=== PATIENT | male | born 1975 | race Caucasian/White ===

== ENCOUNTER 2016-05-03 02:53 | Emergency (ER) | payer OTHER ==
[2016-05-03 03:29] LABS: Hematocrit 51 % (42-52); Hemoglobin 17.3 g/dl (14.0-18.0); Mean Corpuscular HGB Conc 34 g/dl (31-36); Mean Corpuscular Hemoglobin 29 pg (27-31); Mean Corpuscular Volume 86 fL (80-94); Mean Platelet Volume 9 um3 (7.4-10.4); Red Blood Count 5.95 10^6/ul (4.0-5.4); Red Cell Distribution Width 13 % (10.5-15); White Blood Count 13.4 10^3/ul (3.5-10.8)
[2016-05-03 03:42] LABS: Albumin 4.2 g/dL (3.2-5.2); Calcium 9.4 mg/dL (8.6-10.3); EGFR African American 118.4 (>60); EGFR Non-African American 92.1 (>60); Globulin 2.2 g/dL (2-4); Potassium 3.7 mmol/L (3.5-5.0); Total Bilirubin 0.6 mg/dL (0.2-1.0); Total Protein 6.4 g/dL (6.4-8.9)
[2016-05-03] MEDS ORDERED: Insulin REGULAR(*) 1 UNITS UNIT IV PUSH ONE (03:56)
[2016-05-03 07:24] VITALS: BP 122/69
--- NOTE | 2016-05-03 08:26 | RAD ---
INDICATION: Chest pain. COMPARISON: Comparison is made with a prior chest 63 study from August 16, 2015. TECHNIQUE: Dual-energy PA and lateral views of the chest were obtained. FINDINGS: The heart is within normal limits in size. Mediastinal and hilar contours appear within normal limits. The lungs are underinflated and clear. No pleural effusion or pneumothorax is seen. IMPRESSION: NO EVIDENCE FOR ACTIVE CARDIOPULMONARY DISEASE.
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
== END 2016-05-03 07:23 | disposition home or self-care (01) ==
LOC: ED 02:53
DX: S20.311A Abrasion of right front wall of thorax, initial encounter (principal); Y04.1XXA Assault by human bite, initial encounter; Y93.9 Activity, unspecified; Y92.9 Unspecified place or not applicable; E11.9 Type 2 diabetes mellitus without complications
CPT/HCPCS: 36415; 71020; 80053; 84484; 85025; 93005; 99283

== ENCOUNTER 2016-12-06 20:56 | Emergency (ER) | payer OTHER ==
[2016-12-06] MEDS ORDERED: NS 0.9% 1000 ML* 1,000 ML IV ONE (22:13)
[2016-12-06 22:41] LABS: Hematocrit 52 % (42-52); Hemoglobin 18.3 g/dl (14.0-18.0); Mean Corpuscular HGB Conc 35 g/dl (31-36); Mean Corpuscular Hemoglobin 30 pg (27-31); Mean Corpuscular Volume 84 fL (80-94); Mean Platelet Volume 8 um3 (7.4-10.4); Red Blood Count 6.19 10^6/ul (4.0-5.4); Red Cell Distribution Width 13 % (10.5-15)
[2016-12-06 22:42] LABS: Comments Flag Yes
[2016-12-06 22:54] LABS: Albumin 4.6 g/dL (3.2-5.2); BUN/Creatinine Ratio 19.8 (8-20); Calcium 10.1 mg/dL (8.6-10.3); EGFR Non-African American 77.8 (>60); Globulin 2.3 g/dL (2-4); Potassium 4.2 mmol/L (3.5-5.0); Total Bilirubin 0.8 mg/dL (0.2-1.0); Total Protein 6.9 g/dL (6.4-8.9)
[2016-12-06 22:55] LABS: Troponin I 0.01 ng/mL (<0.04)
[2016-12-06] MEDS ORDERED: Iodixanol* (CONTRAST) 320 MG/ML 100 ML SDV IV ONE (23:08)
[2016-12-07 00:55] VITALS: BP 129/78
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
== END 2016-12-07 00:52 | disposition home or self-care (01) ==
LOC: ED 20:56
DX: I71.2 Thoracic aortic aneurysm, without rupture (principal); R11.2 Nausea with vomiting, unspecified; F17.210 Nicotine dependence, cigarettes, uncomplicated; R51 Headache; S06.9X1A Unspecified intracranial injury with loss of consciousness of 30 minutes or less, initial encounter; V43.52XA Car driver injured in collision with other type car in traffic accident, initial encounter; Y93.89 Activity, other specified; Y92.89 Other specified places as the place of occurrence of the external cause
CPT/HCPCS: 36415; 70450; 71260; 72125; 74177; 80053; 83690; 84484; 85025; 85610; 93005; 99282; Q9967

== ENCOUNTER 2018-01-23 22:18 | Emergency (ER) | payer MEDICAID, OTHER ==
[2018-01-24] MEDS ORDERED: predniSONE TAB* 20 MG PO ONE (00:57)
--- NOTE | 2018-01-24 01:54 | ED ---
Back Pain - HPI Summary HPI Summary: Patient is a 42-year-old male presents to the ED with pain to the right buttocks extending down the leg and causing numbness and tingling into the lower extremity just BTK. He states he has had this in the past and he was given painkillers. He endorses numbness and tingling to the foot as well, denies any foot drop. He has difficulty with ambulation. Patient appears extremely fatigued on arrival and is shown to have an unsteady gait. He states his been present for approximately 7 days. Denies any bladder or bowel dysfunction. Pain to the posterior spine diffusely throughout. - History of Current Complaint Chief Complaint: EDExtremityLower Stated Complaint: RT LEG NUMBNESS AND PAIN Time Seen by Provider: 01/23/18 23:21 Hx Obtained From: Patient Onset/Duration: Sudden Onset Onset/Duration: Started Hours Ago Timing: Constant Back Pain Location: Is Discrete @ Severity Initially: Moderate Severity Currently: Moderate Pain Intensity: 7 Pain Scale Used: 0-10 Numeric Alleviating Symptom(s): Rest Associated Signs And Symptoms: Positive: Negative. Negative: Bladder Incontinence, Bowel Incontinence - Risk Factors AAA Risk Factors: Negative TAD Risk Factors: Negative Cauda Equina Risk Factors: Negative Epidural Abscess Risk Factors: Negative - Allergies/Home Medications Allergies/Adverse Reactions: Allergies Allergy/AdvReac Type Severity Reaction Status Date / Time ceftriaxone [From Rocephin] Allergy Flushing Verified 01/23/18 22:26 sumatriptan [From Imitrex] Allergy Headache Verified 01/23/18 22:26 zolmitriptan [From Zomig] Allergy Headache Verified 01/23/18 22:26 PMH/Surg Hx/FS Hx/Imm Hx Previously Healthy: Yes Endocrine/Hematology History: Reports: Hx Diabetes - six years ago Denies: Hx Anticoagulant Therapy, Hx Thyroid Disease Cardiovascular History: Reports: Hx Hypertension, Other Cardiovascular Problems/ Disorders - IDDM Denies: Hx Pacemaker/ICD Respiratory History: Reports: Hx Asthma Denies: Hx Chronic Obstructive Pulmonary Disease (COPD) History: Denies: Hx Renal Disease Neurological History: Denies: Hx Dementia, Hx Seizures Psychiatric History: Denies: Hx Substance Abuse - Surgical History Surgery Procedure, Year, and Place: hand surgery. gallbladder. nose repair. kidney stones - Immunization History Date of Tetanus Vaccine: unk Date of Influenza Vaccine: unk Infectious Disease History: No Infectious Disease History: Denies: Hx Clostridium Difficile, Hx Hepatitis, Hx Human Immunodeficiency Virus (HIV), Hx of Known/Suspected MRSA, Hx Shingles, Hx Tuberculosis, Hx Known/ Suspected VRE, Hx Known/Suspected VRSA, History Other Infectious Disease, Traveled Outside the US in Last 30 Days - Family History Known Family History: Positive: Hypertension - Social History Occupation: Employed Full-time Lives: With Family Alcohol Use: None Hx Substance Use: No Substance Use Type: Reports: None Hx Tobacco Use: Yes Smoking Status (MU): Heavy Every Day Tobacco Smoker Amount Used/How Often: 1 ppd Review of Systems Constitutional: Negative Negative: Fever, Chills, Fatigue, Skin Diaphoresis Negative: Palpitations, Chest Pain Negative: Shortness Of Breath, Cough Genitourinary: Negative Positive: no symptoms reported, see HPI Positive: Arthralgia Skin: Negative All Other Systems Reviewed And Are Negative: Yes Physical Exam Triage Information Reviewed: Yes Vital Signs On Initial Exam: Initial Vitals Temp Pulse Resp BP Pulse Ox 97.9 F 93 16 131/81 97 01/23/18 22:21 01/23/18 22:21 01/23/18 22:21 01/23/18 22:21 01/23/18 22:21 Vital Signs Reviewed: Yes Appearance: Positive: Well-Appearing, Well-Nourished Skin: Positive: Skin Color Reflects Adequate Perfusion Head/Face: Positive: Normal Head/Face Inspection Eyes: Positive: EOMI, SIOBHAN, Conjunctiva Clear Neck: Positive: Supple, No Lymphadenopathy Respiratory/Lung Sounds: Positive: Clear to Auscultation, Breath Sounds Present Cardiovascular: Positive: RRR, Pulses are Symmetrical in both Upper and Lower Extremities Musculoskeletal: Positive: Pain @ - right buttocks pain extending to the R lower extremity just BTK with numbness and tingling - no foot drop or B/B dysfunction Diagnostics - Vital Signs Vital Signs Temp Pulse Resp BP Pulse Ox 01/23/18 22:21 97.9 F 93 16 131/81 97 - Laboratory Lab Statement: Any lab studies that have been ordered have been reviewed, and results considered in the medical decision making process. Back Pain Course/Dx - Course Course Of Treatment: During the course treatment, the patient is evaluated for right-sided buttocks pain extending down to the right leg with numbness and tingling. Denies any foot drop. He remains in the toilet, however states he is weak. Denies any bladder or bowel dysfunction. There is no step-off noted. No pain on palpation to the spine throughout. He is given prednisone in the ED. No numbness/tingling to the inner thighs. CT of lumbar and pelvis show no acute changes. He will be discharged home with RX for prednisone x 5 days and follow up with his PCP. - Diagnoses Provider Diagnoses: Sciatica Discharge - Sign-Out/Discharge Documenting (check all that apply): Patient Departure - Discharge Plan Condition: Stable Disposition: HOME Prescriptions: predniSONE TAB* [Deltasone TAB*] 50 mg PO DAILY #5 tab Patient Education Materials: Sciatica (ED), Piriformis Syndrome (ED) Referrals: Lennox Mendoza MD [Primary Care Provider] - Additional Instructions: Ibuprofen and tylenol for pain moist heat to the area prednisone once daily x 5 days Care connections: [phone] Call to make an appt - Billing Disposition and Condition Condition: STABLE Disposition: Home
--- NOTE | 2018-01-24 02:14 | RAD ---
EXAM: CT Lumbar Spine Without Intravenous Contrast CLINICAL HISTORY: 42 years old, male; Pain; Low back pain; Additional info: Severe low back and groin/leg pain TECHNIQUE: Axial computed tomography images of the lumbar spine without intravenous contrast. All CT scans at this facility use at least one of these dose optimization techniques: automated exposure control; mA and/or kV adjustment per patient size (includes targeted exams where dose is matched to clinical indication); or iterative reconstruction. Coronal and sagittal reformatted images were created and reviewed. COMPARISON: No relevant prior studies available. FINDINGS: Vertebrae: 5 lumbar-type vertebral bodies. The height lumbar vertebral bodies are normal. No evidence of a fracture. No pathologic subluxation. Bony density is normal. L5 S1: Decrease in the height of the disc space. A vacuum phenomena is seen within the disc space. Hypertrophic spurring of the posterior endplate. Mild degenerative changes of the facet joints. Broad based central disc protrusion. Mild narrowing of the central canal. Moderate narrowing of the neural foramen on both sides. Since the prior CT study of 12/06/2016, no new findings. Discs/spinal canal/neural foramina: L1-L2: Unremarkable. No significant facet disease. No central canal stenosis. No bony neuroforaminal narrowing. L2-L3: Mild symmetric disc bulge. No significant facet disease. No central canal stenosis. Mild narrowing neural foramen bilaterally. L3-L4: Diffusely bulging disc with a shallow central disc protrusion. Calcification of the of the central portion of the disc protrusion. No significant facet disease. No significant central canal stenosis. Mild narrowing of the neural foramen both sides. L4-L5: Diffusely bulging disc with a shallow central disc protrusion. No significant facet disease. No central canal stenosis. Mild narrowing of the neural foramen both sides L5 S1: Decrease in the height of the disc space. A vacuum phenomena is seen within the disc space. Broad-based central disc protrusion with air in the left subarticular space and subcortical bone. Hypertrophic spurring of the posterior endplate. Mild degenerative changes of the facet joints. Mild narrowing of the central canal. Moderate narrowing of the neural foramen on both sides. Since the prior CT study of 12/06/2016, no new findings. Upper sacrum: Upper sacral canals are patent. Sacral ala are intact. Soft tissues: Paraspinous musculature is normal. IMPRESSION: 1. Degenerative changes of the L5 S1 disc space in which there is a broad-based central disc spur complex with the presence of air located in the left subarticular region. Advanced degenerative changes of the disc space with a vacuum phenomenon. Moderate narrowing of an oral foraminal both sides. These degenerative changes were present on a prior study of 12/06/2016 and are unchanged. 2. Shallow central disc protrusions at L3-4 and L4-L5. No significant spinal stenosis. Mild narrowing neural foramen bilaterally. No significant facet disease. To contact [facility] with a general question: Operations Center - [phone] For direct physician to physician contact: Physician Hotline - [phone] [facility] (ad Facility ID #[id number])
--- NOTE | 2018-01-24 02:19 | RAD ---
EXAM: CT Pelvis Without Intravenous Contrast CLINICAL HISTORY: 42 years old, male; Pain; Hip pain; Bilateral; Additional info: Leg pain and low back pain TECHNIQUE: Axial computed tomography images of the pelvis without intravenous contrast. All CT scans at this facility use at least one of these dose optimization techniques: automated exposure control; mA and/or kV adjustment per patient size (includes targeted exams where dose is matched to clinical indication); or iterative reconstruction. Coronal and sagittal reformatted images were created and reviewed. COMPARISON: C/A/P W CT CHEST/ABD/PEL W 12/06/2016 11:24 PM FINDINGS: Bones/joints: The appearance of the right and left hips are intact. No evidence of a fracture or dislocation. The pubic rami and ischii are intact. The appearance of the sacrum and sacral ala are intact. The iliac bones are intact. Degenerative changes at the level of L5 S1. Decrease in the height of disc space with a vacuum phenomenon. A posterior disc spur complex is seen with mild narrowing of the spinal canal. Mild degenerative changes of the facet joints. She'll posterior disc protrusion L4-L5. Soft tissues: Pelvic musculature are intact as well as the paraspinous musculature. Bladder: Unremarkable. No stones. IMPRESSION: 1. No evidence of a hip fracture. No significant degenerative changes. 2. Spondylotic changes of the lumbar spine. To contact [facility] with a general question: Operations Center - [phone] For direct physician to physician contact: Physician Hotline - [phone] [facility] ([facility] Facility ID #[id number])
[2018-01-24 02:22] VITALS: BP 132/89
== END 2018-01-24 02:22 | disposition home or self-care (01) ==
LOC: ED 22:18
DX: M54.31 Sciatica, right side (principal); M54.5 Low back pain; F17.210 Nicotine dependence, cigarettes, uncomplicated; I10 Essential (primary) hypertension
CPT/HCPCS: 72131; 72192; 99282; J7512

== ENCOUNTER 2018-04-04 22:56 | Emergency (ER) | payer MEDICAID, OTHER ==
[2018-04-04] MEDS ORDERED: oxyCODONE TAB* 5 MG TAB PO ONE (23:37)
[2018-04-04] MEDS ORDERED: Ibuprofen TAB* 600 MG PO ONE (23:37)
--- NOTE | 2018-04-04 23:39 | ED ---
Upper Extremity Pain - HPI Summary HPI Summary: Patient complains of sudden onset left shoulder pain starting 8 AM this morning. Denies trauma, history of same, fever. Denies any other symptoms, pain, injury. - History of Current Complaint Chief Complaint: [place] Stated Complaint: LEFT SHOULDER PAIN Time Seen by Provider: 04/04/18 23:12 Hx Obtained From: Patient Mechanism Of Injury: Unknown Onset/Duration: Started Hours Ago Timing: Constant Severity Initially: Severe Severity Currently: Severe Pain Location: Shoulder Character: Aching, Throbbing Aggravating Factor(s): Movement Alleviating Factor(s): Rest Associated Signs & Symptoms: Positive: Negative - Allergies/Home Medications Allergies/Adverse Reactions: Allergies Allergy/AdvReac Type Severity Reaction Status Date / Time ceftriaxone [From Rocephin] Allergy Flushing Verified 04/04/18 23:02 sumatriptan [From Imitrex] Allergy Headache Verified 04/04/18 23:02 zolmitriptan [From Zomig] Allergy Headache Verified 04/04/18 23:02 PMH/Surg Hx/FS Hx/Imm Hx Endocrine/Hematology History: Reports: Hx Diabetes - six years ago Denies: Hx Anticoagulant Therapy, Hx Thyroid Disease Cardiovascular History: Reports: Hx Hypertension, Other Cardiovascular Problems/ Disorders - IDDM Denies: Hx Pacemaker/ICD Respiratory History: Reports: Hx Asthma Denies: Hx Chronic Obstructive Pulmonary Disease (COPD) History: Denies: Hx Dialysis, Hx Renal Disease EENT History: Denies: Hx Deafness Neurological History: Denies: Hx Dementia, Hx Seizures Psychiatric History: Denies: Hx Substance Abuse - Surgical History Surgery Procedure, Year, and Place: hand surgery. gallbladder. nose repair. kidney stones - Immunization History Date of Tetanus Vaccine: unk Date of Influenza Vaccine: unk Infectious Disease History: No Infectious Disease History: Denies: Hx Clostridium Difficile, Hx Hepatitis, Hx Human Immunodeficiency Virus (HIV), Hx of Known/Suspected MRSA, Hx Shingles, Hx Tuberculosis, Hx Known/ Suspected VRE, Hx Known/Suspected VRSA, History Other Infectious Disease, Traveled Outside the [place] in Last 30 Days - Family History Known Family History: Positive: Hypertension - Social History Alcohol Use: None Hx Substance Use: No Substance Use Type: Reports: None Hx Tobacco Use: Yes Smoking Status (MU): Heavy Every Day Tobacco Smoker Amount Used/How Often: 1 ppd Review of Systems Constitutional: Negative Eyes: Negative ENT: Negative Cardiovascular: Negative Respiratory: Negative Gastrointestinal: Negative Genitourinary: Negative Positive: Arthralgia Skin: Negative Neurological: Negative Psychological: Normal All Other Systems Reviewed And Are Negative: Yes Physical Exam - Summary Physical Exam Summary: No evidence of ecchymosis, erythema, swelling, deformity, extra warmth noted to left shoulder joint. PMS intact distally, strength normal. Full range of motion of left elbow and left wrist. Pain with palpation of left shoulder diffusely. Patient can abduct only to just below shoulder level. Triage Information Reviewed: Yes Vital Signs On Initial Exam: Initial Vitals Temp Pulse Resp BP Pulse Ox 97.2 F 90 16 159/83 98 04/04/18 22:58 04/04/18 22:58 04/04/18 22:58 04/04/18 22:58 04/04/18 22:58 Vital Signs Reviewed: Yes Appearance: Positive: Well-Appearing Skin: Positive: Warm Head/Face: Positive: Normal Head/Face Inspection Eyes: Positive: Normal Neck: Positive: Supple Respiratory/Lung Sounds: Positive: Clear to Auscultation Cardiovascular: Positive: Normal Abdomen Description: Positive: Nontender Musculoskeletal: Positive: Normal Neurological: Positive: Normal Psychiatric: Positive: Normal AVPU Assessment: Alert - [place] Coma Scale Best Eye Response: 4 - Spontaneous Best Motor Response: 6 - Obeys Commands Best Verbal Response: 5 - Oriented Coma Scale Total: 15 Diagnostics - Vital Signs Vital Signs Temp Pulse Resp BP Pulse Ox 04/04/18 22:58 97.2 F 90 16 159/83 98 - Laboratory Lab Statement: Any lab studies that have been ordered have been reviewed, and results considered in the medical decision making process. Course/Dx - Course Course Of Treatment: Patient complains of sudden onset left shoulder pain starting 8 AM this morning. Denies trauma, history of same, fever. Denies any other symptoms, pain, injury. Physical exam:No evidence of ecchymosis, erythema , swelling, deformity, extra warmth noted to left shoulder joint. PMS intact distally, strength normal. Full range of motion of left elbow and left wrist. Pain with palpation of left shoulder diffusely. Patient can abduct only to just below shoulder level. X-ray negative. Vital signs within normal limits. Follow-up with primary care to arrange further evaluation with orthopedics. Patient somnolent. Possible intoxication of some kind. Opiate pain control was not administered. Patient complained of left shoulder pain. Physical exam stated he could barely move left shoulder. Nurse states when he handed the patient glass of water, pt reached with left hand and drank water with elevated left arm without any indication of pain. Patient likely drug seeking. - Diagnoses Provider Diagnoses: Shoulder pain, acute Discharge - Sign-Out/Discharge Documenting (check all that apply): Patient Departure - Discharge Plan Condition: Stable Disposition: HOME Patient Education Materials: Shoulder Pain (ED) Referrals: Lennox Mendoza MD [Primary Care Provider] - Additional Instructions: Alternate ibuprofen 600 mg with Tylenol 650 mg every 3 hours for pain control. Follow-up with primary care to arrange for further evaluation with orthopedics. Return to the ED for any new or worsening symptoms - Billing Disposition and Condition Condition: STABLE Disposition: Home
[2018-04-05] VITALS: BP 152/88
== END 2018-04-04 23:58 | disposition home or self-care (01) ==
LOC: ED 22:56
DX: M25.512 Pain in left shoulder (principal); M75.32 Calcific tendinitis of left shoulder; Z88.1 Allergy status to other antibiotic agents; Z88.8 Allergy status to other drugs, medicaments and biological substances; F17.200 Nicotine dependence, unspecified, uncomplicated
CPT/HCPCS: 99282; A9270-GY

== ENCOUNTER 2018-06-04 23:26 | Emergency (ER) | payer OTHER ==
[2018-06-05 00:36] LABS: ABS Basophils 0 10^3/ul (0-0.2); ABS Eosinophils 0.1 10^3/ul (0-0.6); ABS Lymphocytes 2.5 10^3/ul (1.0-4.8); ABS Monocytes 0.8 10^3/ul (0-0.8); ABS Neutrophils 6.5 10^3/ul (1.5-7.7); ABS Nucleated RBC 0 10^3/ul; Eosinophil % 0.5 %; Hematocrit 50 % (42-52); Hemoglobin 17.3 g/dl (14.0-18.0); Lymphocyte % 25.4 %; Mean Corpuscular HGB Conc 35 g/dl (31-36); Mean Corpuscular Hemoglobin 29 pg (27-31); Mean Corpuscular Volume 85 fL (80-94); Mean Platelet Volume 8.2 fL (7.4-10.4); Nucleated Red Blood Cells % 0; Platelet Count 183 10^3/ul (150-450); Red Blood Count 5.89 10^6/ul (4.00-5.40); Red Cell Distribution Width 14 % (10.5-15)
[2018-06-05 00:39] LABS: INR 0.83 (0.77-1.02)
[2018-06-05 00:42] LABS: Albumin 4.1 g/dL (3.2-5.2); Albumin/Globulin Ratio 1.8 (1-3); C Reactive Protein 1.15 mg/L (<8.01); Calcium 9.9 mg/dL (8.6-10.3); EGFR African American 99.6 (>60); EGFR Non-African American 82.3 (>60); Globulin 2.3 g/dL (2-4); Total Bilirubin 0.4 mg/dL (0.2-1.0); Total Protein 6.4 g/dL (6.4-8.9)
[2018-06-05] MEDS ORDERED: Iodixanol* (CONTRAST) 320 MG/ML 100 ML SDV IV ONE (00:48)
[2018-06-05] MEDS ORDERED: Morphine VIAL* 4 MG/ML VIAL (1 ml vial) IV ONE (01:05)
[2018-06-05] MEDS ORDERED: NS 0.9% 1000 ML** 1,000 ML IV ONE (01:05)
--- NOTE | 2018-06-05 01:06 | ED ---
Abdominal Pain/Male - HPI Summary HPI Summary: Patient is a 43 y/o M presenting to ED with complaints of RLQ abdominal pain onsetting this morning at around 0800 on 06/04/18 with a sudden exacerbation of pain of that evening. He describes the pain as sharp and "slicing". Nausea, constipation are endorsed as well. He notes ambulation aggravates pain. No fever , no back pain, no testicular pain, no dysuria, no hematuria. PMHx and FMHx of diabetes, patient is on insulin, has not checked sugar today. PSHx of cholecystectomy, nose surgery, right hand surgery, dental surgery. Patient smokes cigarettes. On triage, pain is rated 7/10, nothing is noted to aggravate/ alleviate Sx. Home medications and allergies are reviewed. - History of Current Complaint Chief Complaint: EDAbdPain Stated Complaint: SHARP PAIN IN LOWER ABDOMIN AREA Time Seen by Provider: 06/05/18 00:55 Hx Obtained From: Patient Onset/Duration: Lasting Hours - onset 0800 06/04/18, Still Present, Worse Since Timing: Constant, Lasting Hours Severity Initially: Moderate Severity Currently: Severe Pain Intensity: 7 Pain Scale Used: 0-10 Numeric - 7/10 Location: Discrete At: RLQ Radiates: No Character: Sharp Aggravating Factor(s): Movement - ambulation Alleviating Factor(s): Nothing Associated Signs And Symptoms: Positive: Fever, Constipation, Nausea, Other - no testicular pain. Negative: Back Pain, Urinary Symptoms - Allergies/Home Medications Allergies/Adverse Reactions: Allergies Allergy/AdvReac Type Severity Reaction Status Date / Time ceftriaxone [From Rocephin] Allergy Flushing Verified 06/04/18 23:31 sumatriptan [From Imitrex] Allergy Headache Verified 06/04/18 23:31 zolmitriptan [From Zomig] Allergy Headache Verified 06/04/18 23:31 Home Medications: Home Medications Insulin Glargine,Hum.rec.anlog [Lantus Solostar 5x3 ML PENS] 76 units SUBCUT DAILY 06/05/18 [History Confirmed 06/05/18] PMH/Surg Hx/FS Hx/Imm Hx Endocrine/Hematology History: Reports: Hx Diabetes - six years ago Denies: Hx Anticoagulant Therapy, Hx Thyroid Disease Cardiovascular History: Reports: Hx Hypertension, Other Cardiovascular Problems/ Disorders - IDDM Denies: Hx Pacemaker/ICD Respiratory History: Reports: Hx Asthma Denies: Hx Chronic Obstructive Pulmonary Disease (COPD) History: Denies: Hx Dialysis, Hx Renal Disease Sensory History: Denies: Hx Deafness Neurological History: Denies: Hx Dementia, Hx Seizures Psychiatric History: Denies: Hx Substance Abuse - Surgical History Surgery Procedure, Year, and Place: hand surgery. gallbladder. nose repair. kidney stones - Immunization History Date of Tetanus Vaccine: unk Date of Influenza Vaccine: unk Infectious Disease History: No Infectious Disease History: Denies: Hx Clostridium Difficile, Hx Hepatitis, Hx Human Immunodeficiency Virus (HIV), Hx of Known/Suspected MRSA, Hx Shingles, Hx Tuberculosis, Hx Known/ Suspected VRE, Hx Known/Suspected VRSA, History Other Infectious Disease, Traveled Outside the [place] in Last 30 Days - Family History Known Family History: Positive: Hypertension, Diabetes - Social History Alcohol Use: None Hx Substance Use: No Substance Use Type: Reports: None Hx Tobacco Use: Yes Smoking Status (MU): Heavy Every Day Tobacco Smoker Amount Used/How Often: 1 ppd Review of Systems Negative: Fever Gastrointestinal: Other - POSITIVE - CONSTIPATION Positive: Abdominal Pain, Nausea Genitourinary: Other - NEGATIVE - TESTICULAR PAIN Negative: dysuria, hematuria Musculoskeletal: Other - NEGATIVE - BACK PAIN All Other Systems Reviewed And Are Negative: Yes Physical Exam - Summary Physical Exam Summary: Appearance: Well appearing Skin: warm, dry, reflects adequate perfusion Head/face: normal Eyes: EOMI, SIOBHAN ENT: mucous membranes moist Neck: supple, non-tender Respiratory: CTA, breath sounds present Cardiovascular: RRR, pulses symmetrical Abdomen: RLQ tenderness, positive McBurney's point, soft Bowel Sounds: present Musculoskeletal: normal, strength/ROM intact Neuro: normal, sensory motor intact, A&Ox3 Triage Information Reviewed: Yes Vital Signs On Initial Exam: Initial Vitals Temp Pulse Resp BP Pulse Ox 97.7 F 102 16 142/80 97 06/04/18 23:29 06/04/18 23:29 06/04/18 23:29 06/04/18 23:29 06/04/18 23:29 Vital Signs Reviewed: Yes Diagnostics - Vital Signs Vital Signs Temp Pulse Resp BP Pulse Ox 06/05/18 00:47 95 138/85 95 06/04/18 23:29 97.7 F 102 16 142/80 97 - Laboratory Lab Results: Lab Results 06/05/18 06/05/18 06/05/18 Range/Units 00:17 00:17 00:17 WBC 10.0 (3.5-10.8) 10^3/ul RBC 5.89 H (4.00-5.40) 10^6/ul Hgb 17.3 (14.0-18.0) g/dl Hct 50 (42-52) % MCV 85 (80-94) fL MCH 29 (27-31) pg MCHC 35 (31-36) g/dl RDW 14 (10.5-15) % Plt Count 183 (150-450) 10^3/ul MPV 8.2 (7.4-10.4) fL Neut % (Auto) 65.5 % Lymph % (Auto) 25.4 % [place] % (Auto) 8.2 % Eos % (Auto) 0.5 % Baso % (Auto) 0.4 % Absolute Neuts (auto) 6.5 (1.5-7.7) 10^3/ul Absolute Lymphs (auto) 2.5 (1.0-4.8) 10^3/ul Absolute Monos (auto) 0.8 (0-0.8) 10^3/ul Absolute Eos (auto) 0.1 (0-0.6) 10^3/ul Absolute Basos (auto) 0 (0-0.2) 10^3/ul Absolute Nucleated RBC 0 10^3/ul Nucleated RBC % 0 INR (Anticoag Therapy) 0.83 (0.77-1.02) Sodium 139 (135-145) mmol/L Potassium 4.0 (3.5-5.0) mmol/L Chloride 103 (101-111) mmol/L Carbon Dioxide 28 (22-32) mmol/L Anion Gap 8 (2-11) mmol/L BUN 17 (6-24) mg/dL Creatinine 1.00 (0.67-1.17) mg/dL Est GFR ( Amer) 99.6 (>60) Est GFR (Non-Af Amer) 82.3 (>60) BUN/Creatinine Ratio 17.0 (8-20) Glucose 209 H (70-100) mg/dL Lactic Acid (0.5-2.0) mmol/L Calcium 9.9 (8.6-10.3) mg/dL Total Bilirubin 0.40 (0.2-1.0) mg/dL AST 23 (13-39) U/L ALT 28 (7-52) U/L Alkaline Phosphatase 108 H (34-104) U/L C-Reactive Protein 1.15 (<8.01) mg/L Total Protein 6.4 (6.4-8.9) g/dL Albumin 4.1 (3.2-5.2) g/dL Globulin 2.3 (2-4) g/dL Albumin/Globulin Ratio 1.8 (1-3) Lipase 62 (11.0-82.0) U/L 06/05/18 Range/Units 00:17 WBC (3.5-10.8) 10^3/ul RBC (4.00-5.40) 10^6/ul Hgb (14.0-18.0) g/dl Hct (42-52) % MCV (80-94) fL MCH (27-31) pg MCHC (31-36) g/dl RDW (10.5-15) % Plt Count (150-450) 10^3/ul MPV (7.4-10.4) fL Neut % (Auto) % Lymph % (Auto) % [place] % (Auto) % Eos % (Auto) % Baso % (Auto) % Absolute Neuts (auto) (1.5-7.7) 10^3/ul Absolute Lymphs (auto) (1.0-4.8) 10^3/ul Absolute Monos (auto) (0-0.8) 10^3/ul Absolute Eos (auto) (0-0.6) 10^3/ul Absolute Basos (auto) (0-0.2) 10^3/ul Absolute Nucleated RBC 10^3/ul Nucleated RBC % INR (Anticoag Therapy) (0.77-1.02) Sodium (135-145) mmol/L Potassium (3.5-5.0) mmol/L Chloride (101-111) mmol/L Carbon Dioxide (22-32) mmol/L Anion Gap (2-11) mmol/L BUN (6-24) mg/dL Creatinine (0.67-1.17) mg/dL Est GFR ( Amer) (>60) Est GFR (Non-Af Amer) (>60) BUN/Creatinine Ratio (8-20) Glucose (70-100) mg/dL Lactic Acid 1.5 (0.5-2.0) mmol/L Calcium (8.6-10.3) mg/dL Total Bilirubin (0.2-1.0) mg/dL AST (13-39) U/L ALT (7-52) U/L Alkaline Phosphatase (34-104) U/L C-Reactive Protein (<8.01) mg/L Total Protein (6.4-8.9) g/dL Albumin (3.2-5.2) g/dL Globulin (2-4) g/dL Albumin/Globulin Ratio (1-3) Lipase (11.0-82.0) U/L Result Diagrams: 06/05/18 00:17 06/05/18 00:17 Lab Statement: Any lab studies that have been ordered have been reviewed, and results considered in the medical decision making process. - CT abd/pel ct CT Interpretation Completed By: Radiologist Summary of CT Findings: CT ABD/PEL IMPRESSION: 1. Degenerative disc disease at L5-S1. 2. Bilateral renal cysts. 3. Cholecystectomy. This report was reviewed by ED physician. Re-Evaluation - Re-Evaluation First Eval Re-Evaluation Time: 02:31 Comment: Results of labs and tests discussed with patient, he will be discharged to home. Abdominal Pain Male Course/Dx - Course Course Of Treatment: Nurse's notes reviewed. Patient with right lower quadrant pain concerning for appendicitis. Wbc, CRP are within normal limits. CT scan was performed which identified a normal appendix. There is incidental finding of significant amount of stool in the right colon. This may be causing his discomfort. Patient is feeling much better here and was up and walking around without pain. He is discharged in good condition to follow up with his primary care physician. - Diagnoses Differential Diagnosis/HQI/PQRI: Appendicitis, Constipation, Diverticulitis, Renal Colic, Testicular Torsion, Ureteral Stone, Urinary Tract Infection Provider Diagnoses: RLQ abdominal pain, Constipation Discharge - Sign-Out/Discharge Documenting (check all that apply): Patient Departure - DISCHARGE Patient Received Moderate/Deep Sedation with Procedure: No - NO PROCEDURES DONE - Discharge Plan Condition: Improved Disposition: HOME Prescriptions: Docusate Sodium [Colace] 100 mg PO BID #10 cap Hyoscyamine Sulfate [Levsin] 0.125 mg PO Q4H PRN #20 tablet PRN Reason: abdominal cramping Polyethylene Glycol 3350 BTL* [Miralax] 17 g PO TID PRN #1 btl PRN Reason: Constipation Patient Education Materials: Constipation (ED), High Fiber Diet (ED), Acute Abdominal Pain (ED) Referrals: Lennox Mendoza MD [Primary Care Provider] - Additional Instructions: Call first thing Wednesday morning to schedule prompt follow-up with your doctor. Drink plenty of fluids. Natural fruit juices such as apple or prune may help. Abdominal massage and exercise will help. Return with fever, increased pain in the right lower abdomen, worse, new symptoms or other concerns as discussed. - Billing Disposition and Condition Condition: IMPROVED Disposition: Home - Attestation Statements Document Initiated by Cheli: Yes Documenting Scribe: LILLIAN COBOS Provider For Whom Cheli is Documenting (Include Credential): ÁNGEL FALCON MD Scribe Attestation: ILILLIAN , scribed for ÁNGEL FALCON MD on 06/05/18 at 0519. Scribe Documentation Reviewed: Yes Provider Attestation: The documentation as recorded by the LILLIAN aguilar accurately reflects the service I personally performed and the decisions made by me, ÁNGEL FALCON MD Status of Scribe Document: Viewed
[2018-06-05 03:17] VITALS: BP 140/75
== END 2018-06-05 02:50 | disposition home or self-care (01) ==
LOC: ED 23:26
DX: R10.31 Right lower quadrant pain (principal); K59.00 Constipation, unspecified; R50.9 Fever, unspecified; R11.0 Nausea; E11.9 Type 2 diabetes mellitus without complications; Z79.4 Long term (current) use of insulin; F17.210 Nicotine dependence, cigarettes, uncomplicated
CPT/HCPCS: 36415; 74177; 80053; 83605; 83690; 85025; 85610; 86140; 96361; 96374; 99282; J2270; Q9967

== ENCOUNTER 2018-08-08 12:57 | Emergency (ER) | payer OTHER ==
[2018-08-08] MEDS ORDERED: Acetaminophen TAB* 325 MG PO ONE (13:06)
[2018-08-08] MEDS ORDERED: Insulin REGULAR(*) 1 UNITS UNIT IV ONE (13:06)
[2018-08-08] MEDS ORDERED: NS 0.9% 1000 ML** 2,000 ML IV ONE (13:06)
[2018-08-08 13:33] LABS: ABS Basophils 0 10^3/ul (0-0.2); ABS Eosinophils 0 10^3/ul (0-0.6); ABS Lymphocytes 1.2 10^3/ul (1.0-4.8); ABS Monocytes 1.2 10^3/ul (0-0.8); ABS Neutrophils 9.4 10^3/ul (1.5-7.7); ABS Nucleated RBC 0 10^3/ul; Eosinophil % 0.3 %; Hematocrit 48 % (36-46); Hemoglobin 16.4 g/dL (14.0-18.0); Lymphocyte % 9.8 %; Mean Corpuscular HGB Conc 34 g/dL (31-36); Mean Corpuscular Hemoglobin 30 pg (27-31); Mean Corpuscular Volume 87 fL (80-94); Mean Platelet Volume 7.9 fL (7.4-10.4); Nucleated Red Blood Cells % 0.1; Platelet Count 166 10^3/uL (150-450); Red Blood Count 5.52 10^6 /uL (4.18-5.48); Red Cell Distribution Width 13 % (10.5-15); White Blood Count 11.9 10^3/uL (3.5-10.8)
[2018-08-08 13:53] LABS: Albumin/Globulin Ratio 1.7 (1-3); BUN/Creatinine Ratio 10.9 (8-20); C Reactive Protein 19.86 mg/L (<8.01); EGFR African American 98.5 (>60); EGFR Non-African American 81.4 (>60); Globulin 2.4 g/dL (2-4); Magnesium 1.7 mg/dL (1.9-2.7); Potassium 3.9 mmol/L (3.5-5.0); Total Bilirubin 0.5 mg/dL (0.2-1.0); Total Protein 6.4 g/dL (6.4-8.9)
[2018-08-08 14:20] LABS: INR 0.95 (0.82-1.09)
[2018-08-08 16:09] VITALS: BP 131/85
--- NOTE | 2018-08-08 16:57 | ED ---
HPI Diabetic - HPI Summary HPI Summary: patient is a 43-year-old male who is an uncontrolled diabetic due to medication noncompliance presenting to the ED with bilateral sinus congestion, extreme fatigue from working too much over the past 2 days and feeling unsteady on his feet this morning. Girlfriend at bedside states when he arrived home from work , he was having an unsteady gait and was extremely fatigued. Patient denies any confusion, memory loss, headache, however endorses congestion to the head, frontal and maxillary sinuses. He states he is very fatigued and forgot to take his diabetes medications on arrival home from work. He also ate 2 muffins just prior to going to sleep. When he awoke several hours later, he states this is when he became unsteady on his feet. He arrives by way of EMS with a BG of 418. Typically BG runs between 150-250 per patient. He also states he has had a cough without production x 5 days. Denies any excess urination or thirst. - History Of Current Complaint Chief Complaint: EDFluSymptoms Time Seen by Provider: 08/08/18 12:58 Hx Obtained From: Patient Onset/Duration: Sudden Onset Timing: Constant Severity Initially: Moderate Severity Currently: Moderate Aggravating: Change in Activity Level Related History: DM II, Insulin Requiring, Other - Noncompliant - Risk Factors Cardiac Risk Factors: Negative CVA Risk Factor: Negative Serious Bact. Infect. Risk Factors (Meningitis/Sepsis/UTI): Negative - Allergies/Home Medications Allergies/Adverse Reactions: Allergies Allergy/AdvReac Type Severity Reaction Status Date / Time ceftriaxone [From Rocephin] Allergy Flushing Verified 06/04/18 23:31 sumatriptan [From Imitrex] Allergy Headache Verified 06/04/18 23:31 zolmitriptan [From Zomig] Allergy Headache Verified 06/04/18 23:31 Home Medications: Home Medications Insulin Lispro [Admelog Solostar] 76 unit SUBCUT DAILY 08/08/18 [History Confirmed 08/08/18] PMH/Surg Hx/FS Hx/Imm Hx Previously Healthy: Yes Endocrine/Hematology History: Reports: Hx Diabetes - six years ago Denies: Hx Anticoagulant Therapy, Hx Thyroid Disease Cardiovascular History: Reports: Hx Hypertension, Other Cardiovascular Problems/ Disorders - IDDM Denies: Hx Pacemaker/ICD Respiratory History: Reports: Hx Asthma Denies: Hx Chronic Obstructive Pulmonary Disease (COPD) History: Denies: Hx Dialysis, Hx Renal Disease Sensory History: Denies: Hx Deafness Neurological History: Denies: Hx Dementia, Hx Seizures Psychiatric History: Denies: Hx Substance Abuse - Surgical History Surgery Procedure, Year, and Place: hand surgery. gallbladder. nose repair. kidney stones - Immunization History Date of Tetanus Vaccine: unk Date of Influenza Vaccine: unk Hx Pertussis Vaccination: No Immunizations Up to Date: Yes Infectious Disease History: No Infectious Disease History: Denies: Hx Clostridium Difficile, Hx Hepatitis, Hx Human Immunodeficiency Virus (HIV), Hx of Known/Suspected MRSA, Hx Shingles, Hx Tuberculosis, Hx Known/ Suspected VRE, Hx Known/Suspected VRSA, History Other Infectious Disease, Traveled Outside the [place] in Last 30 Days - Family History Known Family History: Positive: Hypertension, Diabetes - Social History Occupation: Employed Full-time Lives: With Family Alcohol Use: None Hx Substance Use: No Substance Use Type: Reports: None Hx Tobacco Use: Yes Smoking Status (MU): Heavy Every Day Tobacco Smoker Amount Used/How Often: 1 ppd Review of Systems Positive: Fatigue. Negative: Fever, Chills, Skin Diaphoresis Positive: Other - sinus pressure to the maxillary and frontal sinuses. Negative : Epistaxis, Dental Pain, Sore Throat, Ear Ache Negative: Palpitations, Chest Pain Positive: Cough. Negative: Shortness Of Breath Genitourinary: Negative Positive: no symptoms reported, see HPI Negative: Arthralgia, Myalgia Skin: Negative Positive: Weakness Psychological: Normal All Other Systems Reviewed And Are Negative: Yes Physical Exam Triage Information Reviewed: Yes Vital Signs On Initial Exam: Initial Vitals Pulse Resp Pulse Ox 107 13 95 08/08/18 13:00 08/08/18 13:00 08/08/18 13:00 Vital Signs Reviewed: Yes Appearance: Positive: Well-Appearing - But appears fatigued Skin: Positive: Skin Color Reflects Adequate Perfusion Head/Face: Positive: Normal Head/Face Inspection Eyes: Positive: EOMI, Conjunctiva Clear Neck: Positive: No Lymphadenopathy Respiratory/Lung Sounds: Positive: Clear to Auscultation, Breath Sounds Present Cardiovascular: Positive: RRR, Pulses are Symmetrical in both Upper and Lower Extremities Musculoskeletal: Positive: Strength/ROM Intact Neurological: Positive: Speech Normal Psychiatric: Positive: Affect/Mood Appropriate Diagnostics - Vital Signs Vital Signs Temp Pulse Resp BP Pulse Ox 08/08/18 16:10 97.9 F 96 16 131/85 99 08/08/18 16:02 99 28 131/85 93 08/08/18 16:00 103 29 93 08/08/18 15:32 105 3 137/85 92 08/08/18 15:01 102 28 132/78 93 08/08/18 15:00 103 26 94 08/08/18 14:31 104 23 132/83 93 08/08/18 14:02 108 42 146/87 95 08/08/18 14:00 107 35 96 08/08/18 13:01 98.4 F 108 14 153/93 96 08/08/18 13:00 107 13 95 - Laboratory Lab Results: Lab Results 08/08/18 08/08/18 08/08/18 Range/Units 13:24 13:24 13:24 WBC 11.9 H (3.5-10.8) 10^3/uL RBC 5.52 H (4.18-5.48) 10^6 /uL Hgb 16.4 (14.0-18.0) g/dL Hct 48 H (36-46) % MCV 87 (80-94) fL MCH 30 (27-31) pg MCHC 34 (31-36) g/dL RDW 13 (10.5-15) % Plt Count 166 (150-450) 10^3/uL MPV 7.9 (7.4-10.4) fL Neut % (Auto) 79.6 % Lymph % (Auto) 9.8 % Rankin % (Auto) 10.0 % Eos % (Auto) 0.3 % Baso % (Auto) 0.3 % Absolute Neuts (auto) 9.4 H (1.5-7.7) 10^3/ul Absolute Lymphs (auto) 1.2 (1.0-4.8) 10^3/ul Absolute Monos (auto) 1.2 H (0-0.8) 10^3/ul Absolute Eos (auto) 0 (0-0.6) 10^3/ul Absolute Basos (auto) 0 (0-0.2) 10^3/ul Absolute Nucleated RBC 0 10^3/ul Nucleated RBC % 0.1 INR (Anticoag Therapy) (0.82-1.09) VBG pH (7.32-7.43) VBG pCO2 (41-51) mmHg VBG pO2 (35-45) mmHg VBG HCO3 (24-28) mmol/L VBG O2 Saturation (70-80) % VBG Base Excess (0.0-4.0) mmol/L Sodium 137 (135-145) mmol/L Potassium 3.9 (3.5-5.0) mmol/L Chloride 102 (101-111) mmol/L Carbon Dioxide 28 (22-32) mmol/L Anion Gap 7 (2-11) mmol/L BUN 11 (6-24) mg/dL Creatinine 1.01 (0.67-1.17) mg/dL Est GFR ( Amer) 98.5 (>60) Est GFR (Non-Af Amer) 81.4 (>60) BUN/Creatinine Ratio 10.9 (8-20) Glucose 461 H (70-100) mg/dL Lactic Acid 0.9 (0.5-2.0) mmol/L Calcium 9.0 (8.6-10.3) mg/dL Magnesium 1.7 L (1.9-2.7) mg/dL Total Bilirubin 0.50 (0.2-1.0) mg/dL AST 18 (13-39) U/L ALT 23 (7-52) U/L Alkaline Phosphatase 118 H (34-104) U/L C-Reactive Protein 19.86 H (<8.01) mg/L Total Protein 6.4 (6.4-8.9) g/dL Albumin 4.0 (3.2-5.2) g/dL Globulin 2.4 (2-4) g/dL Albumin/Globulin Ratio 1.7 (1-3) 08/08/18 08/08/18 Range/Units 13:24 13:24 WBC (3.5-10.8) 10^3/uL RBC (4.18-5.48) 10^6 /uL Hgb (14.0-18.0) g/dL Hct (36-46) % MCV (80-94) fL MCH (27-31) pg MCHC (31-36) g/dL RDW (10.5-15) % Plt Count (150-450) 10^3/uL MPV (7.4-10.4) fL Neut % (Auto) % Lymph % (Auto) % Rankin % (Auto) % Eos % (Auto) % Baso % (Auto) % Absolute Neuts (auto) (1.5-7.7) 10^3/ul Absolute Lymphs (auto) (1.0-4.8) 10^3/ul Absolute Monos (auto) (0-0.8) 10^3/ul Absolute Eos (auto) (0-0.6) 10^3/ul Absolute Basos (auto) (0-0.2) 10^3/ul Absolute Nucleated RBC 10^3/ul Nucleated RBC % INR (Anticoag Therapy) 0.95 (0.82-1.09) VBG pH 7.41 (7.32-7.43) VBG pCO2 48 (41-51) mmHg VBG pO2 51.0 H (35-45) mmHg VBG HCO3 28.3 H (24-28) mmol/L VBG O2 Saturation 86.9 H (70-80) % VBG Base Excess 4.8 H (0.0-4.0) mmol/L Sodium (135-145) mmol/L Potassium (3.5-5.0) mmol/L Chloride (101-111) mmol/L Carbon Dioxide (22-32) mmol/L Anion Gap (2-11) mmol/L BUN (6-24) mg/dL Creatinine (0.67-1.17) mg/dL Est GFR ( Amer) (>60) Est GFR (Non-Af Amer) (>60) BUN/Creatinine Ratio (8-20) Glucose (70-100) mg/dL Lactic Acid (0.5-2.0) mmol/L Calcium (8.6-10.3) mg/dL Magnesium (1.9-2.7) mg/dL Total Bilirubin (0.2-1.0) mg/dL AST (13-39) U/L ALT (7-52) U/L Alkaline Phosphatase (34-104) U/L C-Reactive Protein (<8.01) mg/L Total Protein (6.4-8.9) g/dL Albumin (3.2-5.2) g/dL Globulin (2-4) g/dL Albumin/Globulin Ratio (1-3) Result Diagrams: 04/29/19 13:24 08/08/18 13:24 Lab Statement: Any lab studies that have been ordered have been reviewed, and results considered in the medical decision making process. Diabetic Course/Dx - Course Course Of Treatment: During his course of treatment, the patient's evaluated for multiple complaints. He arrives by way of EMS with a BG of 418. He is an uncontrolled diabetic as he is medication non-compliant. He states when he arrived home from work this morning he was tired and did not take his lispro insulin. Upon awakening he felt fatigued with an unsteady gait. He states he was just tired possibly with a elevated glucose. He is given 2 L fluids, 10 mg insulin as well as acetaminophen 650 mg for headache. Labs obtained which show a BG of 461. Glucose decreased to 291 on fingerstick. Chest xray shows no acute cardiopulmonary disease. Medications with improvement and states he is feeling better, denying any headache or unsteady gait at this time. He does continue to endorse bilateral maxillary and frontal sinus pressure. He will be given augmentin for sinus pressure/headache. He is Ok for discharge at this time. - Diagnoses Differential Dx: Hyperglycemia, Other - sinusitis Provider Diagnoses: Hyperglycemia, Sinusitis Discharge - Sign-Out/Discharge Documenting (check all that apply): Patient Departure Patient Received Moderate/Deep Sedation with Procedure: No - Discharge Plan Condition: Stable Disposition: HOME Prescriptions: Amoxicillin/Clavulanate TAB* [Augmentin TAB 875*] 875 mg PO BID #14 tab Patient Education Materials: Sinusitis (ED) Forms: *Work Release Referrals: No Primary Care Phys,NOPCP [Primary Care Provider] - Additional Instructions: Augmentin twice daily x 7 days Continue your diabetic medications as prescribed Rest as much as possible - Billing Disposition and Condition Condition: STABLE Disposition: Home
== END 2018-08-08 16:10 | disposition home or self-care (01) ==
LOC: ED 12:57
DX: E11.65 Type 2 diabetes mellitus with hyperglycemia (principal); J01.90 Acute sinusitis, unspecified; I10 Essential (primary) hypertension; J45.909 Unspecified asthma, uncomplicated; F17.210 Nicotine dependence, cigarettes, uncomplicated; R94.31 Abnormal electrocardiogram [ECG] [EKG]; Z79.4 Long term (current) use of insulin; Z91.14 Patient's other noncompliance with medication regimen; Z88.8 Allergy status to other drugs, medicaments and biological substances; Z88.3 Allergy status to other anti-infective agents
CPT/HCPCS: 36415; 71046; 80053; 82803; 83605; 83735; 85025; 85610; 86140; 93005; 96361; 96374; 99283; A9270-GY

== ENCOUNTER 2018-09-28 01:13 | Emergency (ER) | payer OTHER ==
--- NOTE | 2018-09-28 01:29 | ED ---
Skin Complaint - HPI Summary HPI Summary: 43 year old M presenting to [facility] with a chief complaint of boil located on the back of his neck described as itchy and painful x5 days. The patient rates the pain 3/10 in severity. Symptoms aggravated by nothing. Symptoms alleviated by nothing. Patient denies fever. - History of Current Complaint Chief Complaint: EDRashSkinAbscess Time Seen by Provider: 09/28/18 01:22 Stated Complaint: "POSS ABCESS ON THE BACK OF MY HEAD" PER PT Hx Obtained From: Patient Onset/Duration: Started Days Ago - 5, Still Present Timing: Constant, Lasting Days - 5 Current Severity: Mild Pain Intensity: 3 Pain Scale Used: 0-10 Numeric Skin Location: Neck Aggravating Symptom(s): Nothing Alleviating Symptom(s): Nothing Associated Signs & Symptoms: Negative - fever - Allergy/Home Medications Allergies/Adverse Reactions: Allergies Allergy/AdvReac Type Severity Reaction Status Date / Time ceftriaxone [From Rocephin] Allergy Flushing Verified 06/04/18 23:31 sumatriptan [From Imitrex] Allergy Headache Verified 06/04/18 23:31 zolmitriptan [From Zomig] Allergy Headache Verified 06/04/18 23:31 PMH/Surg Hx/FS Hx/Imm Hx Previously Healthy: No Endocrine/Hematology History: Reports: Hx Diabetes - six years ago Denies: Hx Anticoagulant Therapy, Hx Thyroid Disease Cardiovascular History: Reports: Hx Hypertension, Other Cardiovascular Problems/ Disorders - IDDM Denies: Hx Pacemaker/ICD Respiratory History: Reports: Hx Asthma Denies: Hx Chronic Obstructive Pulmonary Disease (COPD) History: Denies: Hx Dialysis, Hx Renal Disease Sensory History: Reports: Hx Contacts or Glasses Denies: Hx Deafness Opthamlomology History: Reports: Hx Contacts or Glasses Neurological History: Denies: Hx Dementia, Hx Seizures Psychiatric History: Denies: Hx Substance Abuse - Surgical History Surgery Procedure, Year, and Place: hand surgery. gallbladder. nose repair. kidney stones - Immunization History Date of Tetanus Vaccine: unk Date of Influenza Vaccine: unk Infectious Disease History: No Infectious Disease History: Denies: Hx Clostridium Difficile, Hx Hepatitis, Hx Human Immunodeficiency Virus (HIV), Hx of Known/Suspected MRSA, Hx Shingles, Hx Tuberculosis, Hx Known/ Suspected VRE, Hx Known/Suspected VRSA, History Other Infectious Disease, Traveled Outside the [place] in Last 30 Days - Family History Known Family History: Positive: Hypertension, Diabetes - Social History Alcohol Use: None Hx Substance Use: No Substance Use Type: Reports: None Hx Tobacco Use: Yes Smoking Status (MU): Heavy Every Day Tobacco Smoker Amount Used/How Often: 1 ppd Review of Systems Negative: Fever Positive: Other - boil on back of neck All Other Systems Reviewed And Are Negative: Yes Physical Exam - Summary Physical Exam Summary: VITAL SIGNS: Reviewed. GENERAL: Patient is a well-developed and nourished MALE who is lying comfortable in the stretcher. Patient is not in any acute respiratory distress. HEAD AND FACE: No signs of trauma. No ecchymosis, hematomas or skull depressions. No sinus tenderness. EYES: PERRLA, EOMI x 2, No injected conjunctiva, no nystagmus. EARS: Hearing grossly intact. Ear canals and tympanic membranes are within normal limits. MOUTH: Oropharynx within normal limits. NECK: Supple, trachea is midline, no adenopathy, no JVD, no carotid bruit, no c- spine tenderness, neck with full ROM CHEST: Symmetric, no tenderness at palpation LUNGS: Clear to auscultation bilaterally. No wheezing or crackles. CVS: Regular rate and rhythm, S1 and S2 present, no murmurs or gallops appreciated. ABDOMEN: Soft, non-tender. No signs of distention. No rebound no guarding, and no masses palpated. Bowel sounds are normal. EXTREMITIES: FROM in all major joints, no edema, no cyanosis or clubbing. NEURO: Alert and oriented x 3. No acute neurological deficits. Speech is normal and follows commands. SKIN: Dry and warm. Patient has a 1-inch by 0.5-inch, tender, red, warm, swollen area over the right side of the lower occipital area. Needle aspiration yielded no pus, just blood. Triage Information Reviewed: Yes Vital Signs On Initial Exam: Initial Vitals Temp Pulse Resp BP Pulse Ox 98 F 108 18 141/88 97 09/28/18 01:15 09/28/18 01:15 09/28/18 01:15 09/28/18 01:15 09/28/18 01:15 Vital Signs Reviewed: Yes Diagnostics - Vital Signs Vital Signs Temp Pulse Resp BP Pulse Ox 09/28/18 01:15 98 F 108 18 141/88 97 - Laboratory Lab Statement: Any lab studies that have been ordered have been reviewed, and results considered in the medical decision making process. Course/Dx - Course Course Of Treatment: 43 year old M presenting to [facility] with a chief complaint of boil located on the back of his neck described as itchy and painful x5 days. Patient denies fever. Physical exam findings: Patient has a 1-inch by 0.5-inch , tender, red, warm, swollen area over the right side of the lower occipital area. Needle aspiration yielded no pus, just blood. POC Glucose is 405. In the ED course, the patient was given clindamycin, insulin, and Percocet. Patient will be discharged home with prescription for clindamycin and Motrin and follow up from primary care provider in 3 days. Patient was advised to take his insulin and to montior his blood glucose levels. Patient was instructed to return to ED for new or worsening symptoms. Patient understands and is agreeable to discharge plan. - Diagnoses Provider Diagnoses: Cellulitis Discharge - Sign-Out/Discharge Documenting (check all that apply): Patient Departure - Discharge Patient Received Moderate/Deep Sedation with Procedure: No - Discharge Plan Condition: Stable Disposition: HOME Prescriptions: Clindamycin Cap(NF) [Clindamycin Cap 300 mg Cap(NF)] 300 mg PO Q6H #30 cap Ibuprofen TAB* [Motrin TAB* 800 MG] 800 mg PO Q6H PRN #30 tab PRN Reason: Pain Patient Education Materials: Cellulitis (ED) Referrals: [facility] [Outside] - 3 Days Additional Instructions: Make sure to take your insulin and monitor your blood sugar. Follow up with a primary care provider in 3 days. PLEASE RETURN TO THE EMERGENCY DEPARTMENT IMMEDIATELY FOR WORSENING OR CONCERNING SYMPTOMS. - Attestation Statements Document Initiated by Scribe: Yes Documenting Scribe: Kimberlyn Bowie Provider For Whom Scribe is Documenting (Include Credential): Jerod Buckley MD Scribe Attestation: Kimberlyn Mcfarland, scribed for Jerod Buckley MD on 09/28/18 at 0150. Status of Scribe Document: Ready
[2018-09-28] MEDS: Insulin REGULAR(*) 1 UNITS UNIT SUBCUT ONE (01:45)
[2018-09-28] MEDS: Clindamycin CAP* 150 MG PO ONE (01:46)
[2018-09-28] MEDS: oxyCODONE/Acetamin 5/325 MG* TAB PO ONE (01:46)
[2018-09-28 02:17] VITALS: BP 152/69
== END 2018-09-28 02:16 | disposition home or self-care (01) ==
LOC: ED 01:13
DX: L03.221 Cellulitis of neck (principal); E11.9 Type 2 diabetes mellitus without complications; I10 Essential (primary) hypertension; F17.210 Nicotine dependence, cigarettes, uncomplicated; Z88.6 Allergy status to analgesic agent; Z88.1 Allergy status to other antibiotic agents
CPT/HCPCS: 96372; 99282; A9270-GY

== ENCOUNTER 2019-04-06 18:07 | Emergency (ER) | payer OTHER ==
--- NOTE | 2019-04-06 18:23 | ED ---
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 Knife was under the box. Tetanus status up-to-date. Denies any other pain, injury or symptoms. No anti-coag. - History of Current Complaint Stated Complaint: RT HAND FINGERS LAC PER PT Time Seen by Provider: 04/06/19 18:22 Hx Obtained From: Patient Mechanism of Injury: Sharp/Blunt Trauma Aggravating: Movement Timing: Constant Onset Severity: Moderate Current Severity: Moderate Pain Intensity: 6 Pain Scale Used: 0-10 Numeric Associated Signs & Symptoms: Pain - Allergy/Home Medications Allergies/Adverse Reactions: Allergies Allergy/AdvReac Type Severity Reaction Status Date / Time ceftriaxone [From Rocephin] Allergy Flushing Verified 06/04/18 23:31 sumatriptan [From Imitrex] Allergy Headache Verified 06/04/18 23:31 zolmitriptan [From Zomig] Allergy Headache Verified 06/04/18 23:31 PMH/Surg Hx/FS Hx/Imm Hx Endocrine/Hematology History: Reports: Hx Diabetes - six years ago Denies: Hx Anticoagulant Therapy, Hx Thyroid Disease Cardiovascular History: Reports: Hx Hypertension, Other Cardiovascular Problems/ Disorders - IDDM Denies: Hx Pacemaker/ICD Respiratory History: Reports: Hx Asthma Denies: Hx Chronic Obstructive Pulmonary Disease (COPD) History: Denies: Hx Dialysis, Hx Renal Disease Sensory History: Reports: Hx Contacts or Glasses Denies: Hx Deafness Opthamlomology History: Reports: Hx Contacts or Glasses EENT History: Denies: Hx Deafness Neurological History: Denies: Hx Dementia, Hx Seizures Psychiatric History: Denies: Hx Substance Abuse - Surgical History Surgery Procedure, Year, and Place: hand surgery. gallbladder. nose repair. kidney stones - Immunization History Date of Tetanus Vaccine: unk Date of Influenza Vaccine: unk Infectious Disease History: No Infectious Disease History: Denies: Hx Clostridium Difficile, Hx Hepatitis, Hx Human Immunodeficiency Virus (HIV), Hx of Known/Suspected MRSA, Hx Shingles, Hx Tuberculosis, Hx Known/ Suspected VRE, Hx Known/Suspected VRSA, History Other Infectious Disease, Traveled Outside the [place] in Last 30 Days - Family History Known Family History: Positive: Hypertension, Diabetes - Social History Alcohol Use: None Hx Substance Use: No Substance Use Type: Reports: None Hx Tobacco Use: Yes Smoking Status (MU): Heavy Every Day Tobacco Smoker Amount Used/How Often: 1 ppd Review of Systems Constitutional: Negative Eyes: Negative ENT: Negative Cardiovascular: Negative Respiratory: Negative Gastrointestinal: Negative Genitourinary: Negative Musculoskeletal: Negative Skin: Other Neurological: Negative Psychological: Normal All Other Systems Reviewed And Are Negative: Yes Physical Exam - Summary Physical Exam Summary: Flexion and extension intact to each individual joint of her second and third fingers of right hand. Triage Information Reviewed: Yes Vital Signs On Initial Exam: Initial Vitals Temp Pulse Resp BP Pulse Ox 97.3 F 123 19 141/95 100 04/06/19 18:10 04/06/19 18:10 04/06/19 18:10 04/06/19 18:10 04/06/19 18:10 Vital Signs Reviewed: Yes Appearance: Positive: Well-Appearing Skin: Positive: Warm Head/Face: Positive: Normal Head/Face Inspection Eyes: Positive: Normal Neck: Positive: Supple Respiratory/Lung Sounds: Positive: Clear to Auscultation Cardiovascular: Positive: Normal Abdomen Description: Positive: Nontender Musculoskeletal: Positive: Normal Neurological: Positive: Normal Psychiatric: Positive: Normal AVPU Assessment: Alert - [place] Coma Scale Best Eye Response: 4 - Spontaneous Best Motor Response: 6 - Obeys Commands Best Verbal Response: 5 - Oriented Coma Scale Total: 15 Procedures - Sedation Patient Received Moderate/Deep Sedation with Procedure: No Diagnostics - Vital Signs Vital Signs Temp Pulse Resp BP Pulse Ox 04/06/19 18:10 97.3 F 123 19 141/95 100 - Laboratory Lab Statement: Any lab studies that have been ordered have been reviewed, and results considered in the medical decision making process. 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 Knife was under the box. Tetanus status up-to-date. Denies any other pain, injury or symptoms. No anti-coag. Vital signs within normal limits. Wounds cleaned and sutured. - Clinical Impression Provider Diagnoses: Laceration Discharge ED - Sign-Out/Discharge Documenting (check all that apply): Patient Departure - Discharge Plan Condition: Stable Disposition: HOME Prescriptions: Sulfamethox/Trimethoprim DS* [Bactrim DS 800/160 TAB*] 1 tab PO BID 10 Days #20 tab Patient Education Materials: Care For Your Stitches (ED), Finger Laceration (ED ), Skin Adhesive Care (ED) Referrals: No Primary Care Phys,NOPCP [Medical Doctor] - Additional Instructions: Sutures out in 10 days. Keep dressing on until tomorrow. You may then wash with warm running water and soap. Do not submerge underwater. Keep wound clean and dry and protected when not washing. Take antibiotics twice a day as directed for 10 days. Follow-up with primary care. Return to the ED for any new or worsening symptoms. - Billing Disposition and Condition Condition: STABLE Disposition: Home
[2019-04-06] MEDS ORDERED: Sulfamethox/Trimethoprim DS 800/160* TAB PO ONE (18:54)
--- OUTSIDE RECORDS SUMMARY | 2019-04-06 19:15 | XMS REPORT | Summary of Care ---
:1975 Author Organization [facility] Address [address] [facility] [place] [address] Care Team Providers Name Role Phone Deniz Oglesby Primary Care Provider Reason for Visit Reason Comments Weight Loss Pt. complaining of weight loss, down 3 pant sizes in about 2 months. Pt. feels it is probably due to uncontrolled DM. Medication Refill Pt. wants to renew all his DM meds, which he stopped many months ago due to excessive work hours. Encounter Details Date Type Department Care Team Description 03/31/2019 Office Visit [place] [facility] Deniz Oglesby, Type 2 diabetes mellitus with hyperglycemia, with long-term current use of insulin (HCC) ( Primary Dx); Medicine [place] Need for vaccination [address] [place] [address] [place] [address] [phone] Allergies Active Allergy Reactions Severity Noted Date Comments Sumatriptan Succinate Other 08/31/2016 Increased pain with headache Ceftriaxone Sodium In HEAT TREAT PULLER Reaction 08/31/2016 Dextrose Zolmitriptan Other 08/31/2016 Increased pain with headache documented as of this encounter (statuses as of 03/31/2019) Medications Medication Sig Dispensed Refills Start End Date Status Date Ostomy Supplies 1 Each by Does 90 Each 3 Active (ADHESIVE REMOVER not apply route 8 WIPES) Does not DAILY. To remove apply adhesive from VGO MiscIndications: Uncontrolled type 2 diabetes mellitus with other specified complication, with long-term current use of insulin, Other specified diabetes mellitus with complication, with long-term current use of insulin Blood Glucose 1 Each by Does 1 Device 0 Active Monitor Software not apply route 8 Does not apply DIRECTED. DeviceIndications uncontrolled : Type 2 diabetes insulin dependent mellitus with diabetes. Brand: other specified insurance complication preferred (HCC) Insulin 1 Each by Does 1 Kit 0 Active Disposable Pump not apply route 8 (V-GO 40) Does DAILY. Apply not apply daily to deliver KitIndications: basal 1.67u/hr Type 2 diabetes and on demand mellitus with bolus other specified complication (HCC) naproxen Take 1 Tab by 20 Tab 0 Active (NAPROSYN) 500 MG mouth TWICE 8 Oral DAILY. With food TabIndications: Adhesive capsulitis of left shoulder Lancets Does not 1 Each by Does 90 Each 3 03/31/20 Discontinued apply not apply route 8 19 (Patient stopped MiscIndications: THREE TIMES the medication) Type 2 diabetes DAILY. mellitus with Brand:Insurance other specified preferred complication Dx:E11.8 Insulin (HCC) dependent Test Blood Glucose 3 time(s) A DAY Glucose Blood 100 Strips by In 100 Each 5 03/31/20 Discontinued (ONE TOUCH TEST Vitro route FOUR 8 19 (Patient stopped STRIPS) In Vitro TIMES DAILY. Make the medication) StripIndications: sure it is same Type 2 diabetes brand as mellitus with glucometer other specified complication (HCC) insulin aspart, Inject 76 Units 20 mL 1 03/31/20 Discontinued RAPID - Acting, beneath the skin 8 19 (Patient stopped (INSULIN ASPART) DAILY. MDD 76 the medication) 100 UNIT/ML units deliver via Subcutaneous VGO at 1.67u/hr SolutionIndicatio and on demand ns: Type 2 bolus diabetes mellitus with other specified complication (HCC) ADMELOG 100 Inject 76 Units 30 mL 3 03/31/20 Discontinued UNIT/ML beneath the skin 9 19 (Patient stopped Subcutaneous Continuous. Via the medication) Solution VGO 40 MDD 76 units Insulin Pen 1 Device by Does 100 Each 5 03/31/20 Discontinued Needle (PEN not apply route 9 19 (Patient stopped NEEDLES) 32G X 6 NEEDED (used the medication) MM Does not apply to inject Misc insulin). insulin aspart, Inject 76 Units 1 Each 5 03/31/20 Discontinued RAPID - Acting, beneath the skin 9 19 (Patient stopped (NOVOLOG) 100 DAILY. the medication) UNIT/ML Subcutaneous Solution documented as of this encounter (statuses as of 03/31/2019) Active Problems Problem Noted Date Thoracic aortic aneurysm without rupture 08/19/2017 Essential hypertension 03/30/2017 Right sided sciatica 03/30/2017 Acute pain of right knee 03/25/2017 Uncontrolled type 2 diabetes mellitus 09/02/2016 Anxiety state 09/02/2016 documented as of this encounter (statuses as of 03/31/2019) Immunizations Name Administration Dates Next Due Influenza (IM) Preservative Free 03/31/2019, 04/06/2018, 12/23/2016 PNEUMOCOCCAL POLYSACCHARIDE VACCINE 03/31/2019 documented as of this encounter Social History Tobacco Use Types Packs/Day Years Used Date Current Every Day Smoker 1.5 Smokeless Tobacco: Former User Alcohol Use Drinks/Week oz/Week Comments No Sex Assigned at Date Recorded Not on file Job Start Date Occupation Industry Not on file Not on file Not on file Travel History Travel Start Travel End No recent travel history available. documented as of this encounter Last Filed Vital Signs Vital Sign Reading Time Taken Comments Blood Pressure 124/68 03/31/2019 1:03 PM EST Pulse 78 03/31/2019 1:03 PM EST Temperature - - Respiratory Rate - - Oxygen Saturation - - Inhaled Oxygen Concentration - - Weight 84.6 kg (186 lb 8 oz) 03/31/2019 1:03 PM EST Height 190.5 cm (6' 3") 03/31/2019 1:03 PM EST Body Mass Index 23.31 03/31/2019 1:03 PM EST documented in this encounter Patient Instructions Patient InstructionsDeniz Oglesby PA - 03/31/2019 1:00 PM ESTFollow up in 2 weeks to discuss diet plan. I will call about lab work once it is in. Please register your eGuthrie so you have a direct line with me. documented in this encounter Progress Notes Deniz Oglesby PA - 03/31/2019 1:00 PM EST PATIENT: Bandar Barahona : 1975 DATE OF SERVICE: 03/31/2019 CHIEF COMPLAINT: Chief Complaint Patient presents with Weight Loss Pt. complaining of weight loss, down 3 pant sizes in about 2 months. Pt. feels it is probably dueto uncontrolled DM. Medication Refill Pt. wants to renew all his DM meds, which he stopped many months ago due to excessive work hours. Subjective HISTORY OF PRESENT ILLNESS: Bandar Baraohna is a 43-y.o. male. 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 He states that he stopped taking his insulin because he works 80 hours per week. His diet consists predominantly of fast food or snacks. He does not cook for himself and he does not eat any produce. He describes symptoms as polydipsia polyuria fatigue. Course to date has been Uncontrolled. Patient denies paresthesias of the feet: not present chest pain dyspnea on exertion foot ulcerations visual disturbences. Home sugars are running: patient does not check sugars. Previous visits for this problem: multiple. Patient has been followed for this diagnosis and has been treated with insulins but is constantly non- compliant. Evaluation to date: see lab results. PHQ-2: 0 Past Medical History: Diagnosis Date Anxiety Asthma Diabetes mellitus (HCC) Fractures Headache disorder Hypertension Pneumonia Right sided sciatica 03/30/2017 Family History Problem Relation Age of Onset Diabetes Mother Stroke Mother Seizures Mother Arthritis Mother Psychiatry Mother Heart Father Alcohol/Drug Father Psychiatry Father Diabetes Father Alcohol/Drug Sister Psychiatry Sister Diabetes Sister Psychiatry Daughter Asthma Son Allergies Son Psychiatry Son Diabetes Maternal Grandmother Diabetes Maternal Grandfather Diabetes Paternal Grandmother Diabetes Paternal Grandfather Glaucoma No family history Blindness No family history Macular Degeneration No family history Other Eye Problems No family history Current Outpatient Medications Medication Sig ADMELOG 100 UNIT/ML Subcutaneous Solution Inject 76 Units beneath the skin Continuous. Via VGO 40 MDD 76 units Blood Glucose Monitor Software Does not apply Device 1 Each by Does not apply route DIRECTED. uncontrolled insulin dependent diabetes. Brand: insurance preferred Glucose Blood (ONE TOUCH TEST STRIPS) In Vitro Strip 100 Strips by In Vitro route FOUR TIMES DAILY. Make sure it is same brand as glucometer insulin aspart, RAPID - Acting, (INSULIN ASPART) 100 UNIT/ML Subcutaneous Solution Inject 76 Units beneath the skin DAILY. MDD 76 units deliver via VGO at 1.67u/hr and on demand bolus insulin aspart, RAPID - Acting, (NOVOLOG) 100 UNIT/ML Subcutaneous Solution Inject 76 Units beneath the skin DAILY. Insulin Disposable Pump (V-GO 40) Does not apply Kit 1 Each by Does not apply route DAILY. Apply daily to deliver basal 1.67u/hr and on demand bolus Insulin Pen Needle (PEN NEEDLES) 32G X 6 MM Does not apply Misc 1 Device by Does not apply route NEEDED (used to inject insulin). Lancets Does not apply Misc 1 Each by Does not apply route THREE TIMES DAILY. Brand:Insurancepreferred Dx:E11.8 Insulin dependent Test Blood Glucose 3 time(s) A DAY naproxen (NAPROSYN) 500 MG Oral Tab Take 1 Tab by mouth TWICE DAILY. With food Ostomy Supplies (ADHESIVE REMOVER WIPES) Does not apply Misc 1 Each by Does not apply route DAILY. To remove adhesive from VGO No current facility-administered medications for this visit. Allergies Allergen Reactions Imitrex [Sumatriptan Succinate] Other Increased pain with headache Rocephin [Ceftriaxone Sodium In Dextrose] HEAT TREAT PULLER Reaction Zomig [Zolmitriptan] Other Increased pain with headache Social History Socioeconomic History Marital status: Single Spouse name: Not on file Number of children: Not on file Years of education: Not on file Highest education level: Not on file Occupational History Not on file Social Needs Financial resource strain: Not on file Food insecurity Worry: Not on file Inability: Not on file Transportation needs Medical: Not on file Non-medical: Not on file Tobacco Use Smoking status: Current Every Day Smoker Packs/day: 1.50 Smokeless tobacco: Former User Substance and Sexual Activity Alcohol use: No Drug use: No Sexual activity: Yes Partners: Female control/protection: Other Lifestyle Physical activity Days per week: Not on file Minutes per session: Not on file Stress: Not on file Relationships Social connections Talks on phone: Not on file Gets together: Not on file Attends religion service: Not on file Active member of club or organization: Not on file Attends meetings of clubs or organizations: Not on file Relationship status: Not on file Intimate partner violence Fear of current or ex partner: Not on file Emotionally abused: Not on file Physically abused: Not on file Forced sexual activity: Not on file Other Topics Concern Back Care Not Asked Bike Helmet Not Asked Blood Transfusions Not Asked Caffeine Concern Not Asked Exercise Not Asked Hobby Hazards Not Asked International Travel Not Asked Service Not Asked Occupational Exposure Not Asked Seat Belt Not Asked Self-Exams Not Asked Sleep Concern Not Asked Special Diet Not Asked Stress Concern Not Asked Weight Concern Not Asked Social History Narrative Recently moved here Drives a cab , 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 Negative for chills and fever. HENT: Negative for congestion, hearing loss, sore throat and tinnitus. Eyes: Negative for blurred vision and double vision. Patient receives eye exams annually. Respiratory: Positive for cough. Negative for sputum production, shortness of breath and wheezing. Cardiovascular: Negative for chest pain, palpitations and leg swelling. Gastrointestinal: Negative for diarrhea, nausea and vomiting. Genitourinary: Negative for dysuria and urgency. Musculoskeletal: Negative for joint pain, myalgias and neck pain. Skin: Negative for itching and rash. Neurological: Negative for dizziness, tingling, tremors and headaches. Psychiatric/Behavioral: Negative for depression, substance abuse and suicidal ideas. Objective PHYSICAL EXAM: VITALS: BP 124/68 | Pulse 78 | Ht 6' 3" (1.905 m) | Wt 186 lb 8 oz (84.6 kg ) | BMI 23.31 kg/m Body mass index is 23.31 kg/m. Physical Exam Vitals signs and nursing note reviewed. Constitutional: General: He is not in acute distress. Appearance: Normal appearance. He is not diaphoretic. HENT: Head: Normocephalic and atraumatic. Right Ear: Tympanic membrane and ear canal normal. There is no impacted cerumen. Left Ear: Ear canal normal. There is no impacted cerumen. Nose: No congestion or rhinorrhea. Mouth/Throat: Mouth: Mucous membranes are moist. Pharynx: No oropharyngeal exudate or posterior oropharyngeal erythema. Eyes: Extraocular Movements: Extraocular movements intact. Pupils: Pupils are equal, round, and reactive to light. Comments: Fundi benign; optic disc not visualized. Neck: Musculoskeletal: Neck supple. No muscular tenderness. Cardiovascular: Rate and Rhythm: Normal rate and regular rhythm. Pulses: Normal pulses. Dorsalis pedis pulses are 2+ on the right side and 2+ on the left side. Heart sounds: No murmur. No friction rub. No gallop. Pulmonary: Effort: No respiratory distress. Breath sounds: No wheezing, rhonchi or rales. Abdominal: Palpations: Abdomen is soft. Tenderness: There is no abdominal tenderness. There is no right CVA tenderness, left CVA tenderness, guarding or rebound. Musculoskeletal: Right foot: Normal range of motion. No deformity or foot drop. Left foot: Normal range of motion. No deformity or foot drop. Feet: Right foot: Protective Sensation: 3 sites tested. 3 sites sensed. Skin integrity: No ulcer, blister or skin breakdown. Toenail Condition: Right toenails are normal. Left foot: Protective Sensation: 3 sites tested. 3 sites sensed. Skin integrity: No ulcer, blister or skin breakdown. Toenail Condition: Left toenails are normal. Lymphadenopathy: Cervical: No cervical adenopathy. Skin: General: Skin is warm and dry. Capillary Refill: Capillary refill takes less than 2 seconds. Findings: No erythema, lesion or rash. Neurological: Coordination: Coordination normal. Deep Tendon Reflexes: Reflexes normal. Psychiatric: Comments: No signs of depression, suicidal ideation or thoughts. ASSESSMENT / IMPRESSION: ICD-9-CM ICD-10-CM 1. Type 2 diabetes mellitus with hyperglycemia, with long-term current use of insulin (HCC) 250.00 E11.65 COMPREHENSIVE METABOLIC PANEL 790.29 Z79.4 GLYCOHEMOGLOBIN A1C V58.67 LIPID PROFILE MICROALBUMIN, RANDOM URINE W/ CREATININE LDL, DIRECT CBC NO DIFFERENTIAL I ordered lab work and updated the medications he was not taking. We need to try to restart him on medications, but he was resistant to starting them today. As a result, we discussed diet for 20 minutes today and I will be seeing him in 2 weeks from now. Until then, I want him to strongly consider starting a medication. I will review his blood work for our next visit. I plan on starting him on at least 1 by mouth medication. I will be looking towards insulin that we will have to start as a result of potential pancreatic failure; as seen by the weight loss. I spent 40 minutes with the patient, greater than half of this time in direct face to face counseling regarding the condition and the plan of care. Pneumovax and influenza vaccine administered today. Author: DIMA Salazar 03/31/2019 13:21 documented in this encounter Plan of Treatment Date Type Specialty Care Team Description 04/14/2019 Office Visit Internal Medicine Deniz Oglesby, PA [address] [place] [address] [phone] Name Type Priority Associated Diagnoses Date/Time COMPREHENSIVE METABOLIC Lab Routine Type 2 diabetes 03/31/2019 2:08 PM PANEL mellitus with EST hyperglycemia, with long-term current use of insulin ([facility]) GLYCOHEMOGLOBIN A1C Lab Routine Type 2 diabetes 03/31/2019 2:08 PM mellitus with EST hyperglycemia, with long-term current use of insulin ([facility]) LIPID PROFILE Lab Routine Type 2 diabetes 03/31/2019 2:08 PM mellitus with EST hyperglycemia, with long-term current use of insulin ([facility]) MICROALBUMIN, RANDOM URINE Lab Routine Type 2 diabetes 03/31/2019 2:10 PM W/ CREATININE mellitus with EST hyperglycemia, with long-term current use of insulin ([facility]) LDL, DIRECT Lab Routine Type 2 diabetes 03/31/2019 2:08 PM mellitus with EST hyperglycemia, with long-term current use of insulin ([facility]) CBC NO DIFFERENTIAL Lab Routine Type 2 diabetes 03/31/2019 2:08 PM mellitus with EST hyperglycemia, with long-term current use of insulin ([facility]) ISLET CELL ANTIBODY Lab Routine Type 2 diabetes 03/31/2019 2:08 PM mellitus with EST hyperglycemia, with long-term current use of insulin ([facility]) Name Type Priority Associated Diagnoses Order Schedule COMPREHENSIVE METABOLIC Lab Routine Type 2 diabetes Expected: 03/31/2019 PANEL mellitus with (Approximate), hyperglycemia, with Expires: 03/31/2020 long-term current use of insulin ([facility]) GLYCOHEMOGLOBIN A1C Lab Routine Type 2 diabetes Expected: 03/31/2019 mellitus with (Approximate), hyperglycemia, with Expires: 03/31/2020 long-term current use of insulin (HCC) LIPID PROFILE Lab Routine Type 2 diabetes Expected: 03/31/2019 mellitus with (Approximate), hyperglycemia, with Expires: 03/31/2020 long-term current use of insulin ([facility]) MICROALBUMIN, RANDOM URINE Lab Routine Type 2 diabetes Expected: 03/31/2019 W/ CREATININE mellitus with (Approximate), hyperglycemia, with Expires: 09/27/2019 long-term current use of insulin ([facility]) LDL, DIRECT Lab Routine Type 2 diabetes Expected: 03/31/2019 mellitus with (Approximate), hyperglycemia, with Expires: 03/31/2020 long-term current use of insulin (HCC) CBC NO DIFFERENTIAL Lab Routine Type 2 diabetes Expected: 03/31/2019 mellitus with (Approximate), hyperglycemia, with Expires: 03/31/2020 long-term current use of insulin (HCC) ISLET CELL ANTIBODY Lab Routine Type 2 diabetes Expected: 03/31/2019 mellitus with (Approximate), hyperglycemia, with Expires: 03/31/2020 long-term current use of insulin (HCC) Health Maintenance Due Date Last Done Comments PNEUMOCOCCAL 0-64 YRS (1 of 1983 1 - PPSV23) HEMOGLOBIN A1C 07/05/2018 04/06/2018, 07/19/2017, 12/24/2016, Additional history exists DEPRESSION SCREENING 08/19/2018 08/19/2017 INFLUENZA VACCINE (#1) 2018 04/06/2018, 12/23/2016 LIPID DISORDER SCREENING 04/06/2019 04/06/2018, 10/10/2016 URINE MICROALBUMIN 04/06/2019 04/06/2018 DTaP/Tdap/Td Vaccines (1 - 06/25/2019 Postponed from Tdap) 1988 (Other) Diabetic Eye Exam 09/27/2019 10/27/2016, 10/27/2016, Postponed from 10/27/2016, Additional 10/27/2017 (Discuss history exists again after) FOOT EXAM 09/27/2019 01/04/2017, 01/04/2017, Postponed from 01/04/2017, Additional 01/04/2018 (Discuss history exists again after) HIV SCREENING Completed 04/06/2018 HEPATITIS A IMMUNIZATION Aged Out No longer eligible SERIES based on patient's age to complete this topic HPV IMMUNIZATION SERIES Aged Out No longer eligible based on patient's age to complete this topic MENINGOCOCCAL VACCINE IMM Aged Out No longer eligible based on patient's age to complete this topic documented as of this encounter Goals Goal Patient Goal Associated Recent Patient-Stated? Author Type Problems Progress Blood Pressure Blood Pressure 124/68 No Valentin, < 140/90 (03/31/2019 TUCKER Head 1:03 PM EST) Note: This is an individualized treatment (blood pressure) goal for Bandar Barahona: Displayed above (on the left) is your goal for blood pressure control. Your most recent blood pressure is also shown above, on the right. You should try to achieve blood pressures that are lower than your goal listed above (on the left). Depression screen (PHQ-9) total score < 5 Depression No Jerrica High RN Note: This is an individualized treatment (depression) goal for Bandar Barahona: Displayed above is your goal for a depression screening (PHQ-9) score that would indicate good control of your depression. Glycohemoglobin A1c < 7.0 Diabetes 12.6 (04/06/2018 1:50 No Jerrica High RN PM EST) Note: This is an individualized treatment (diabetes control, HgbA1C) goal for Bandar Barahona: Displayed above is your progress towards your HgbA1C goal. Your goal is shown above (on the left); your most recent HgbA1C is shown on the right. Note that lower numbers are better. Work with your Computer Art Instructor General Jerrica Bear RN Note: This is an individualized treatment (frequent ED use) goal for Bandar Barahona : Please work with your Computer Art Instructor, who will assist you in meeting your goals of care. Keep a regular sleep schedule Lifestyle No Jerrica High RN Note: This is an individualized lifestyle goal for Bandar Barahona: Please maintain a regular sleep schedule. This may help with some symptoms of depression. Keep immunizations current Lifestyle No Jerrica High RN Note: This is an individualized lifestyle goal for Bandar Barahona: Please be sure to keep up-to-date on recommended immunizations. For example, this would include a yearly influenza vaccine. Immunization status can be seen by looking at the Health Maintenance sections of your eGuthrie, Plan of Care, and any After Visit Summaries. Regular appointments with primary care Lifestyle No Jerrica High RN provider (PCP) Note: This is an individualized lifestyle goal for Bandar Barahona: Please schedule regular visits with your primary care provider (PCP). Care provided in your PCP's office can help reduce your need for additional trips to the Emergency Room. Take all prescribed medications as Self-management No Jerrica High RN directed Note: This is an individualized self-management goal for Bandar Barahona: Please take all prescribed medications as directed. 1. Do not skip doses. If you cannot afford your medications, talk with your doctor. 2. Use a pill reminder system such as a pill box if needed. Your pharmacist can help you with this. 3. Contact your Pharmacy 5 days before your medication runs out. If you cannot take your medications for any reasons, talk with your doctor. 4. Please bring all of your medication bottles and inhalers (or a list of all your medications/inhalers) with you to every visit. Potential barriers to meeting all of your care plan goals will continue to be addressed on an ongoing basis. documented as of this encounter Results Not on filedocumented in this encounter Visit Diagnoses Diagnosis Type 2 diabetes mellitus with hyperglycemia, with long-term current use of insulin (HCC) Need for vaccination Need for prophylactic vaccination and inoculation against unspecified single disease documented in this encounter Insurance Payer Benefit Plan / Subscriber ID Effective Dates Phone Address Type Group [facility] xxxxxxxxxxx 2018-Present [place] (Home) [place], [place] [phone] (Work) documented as of this encounter
[2019-04-06 19:22] VITALS: BP 134/86
[2019-04-06 20:11] LABS: HIV 4th Generation Nonreactive (Nonreactive)
== END 2019-04-06 19:21 | disposition home or self-care (01) ==
LOC: ED 18:07
DX: S61.210A Laceration without foreign body of right index finger without damage to nail, initial encounter (principal); S61.212A Laceration without foreign body of right middle finger without damage to nail, initial encounter; W26.0XXA Contact with knife, initial encounter; Y92.9 Unspecified place or not applicable; E11.9 Type 2 diabetes mellitus without complications; I10 Essential (primary) hypertension; J45.909 Unspecified asthma, uncomplicated; F17.200 Nicotine dependence, unspecified, uncomplicated; Z87.442 Personal history of urinary calculi; Z88.1 Allergy status to other antibiotic agents; Z88.8 Allergy status to other drugs, medicaments and biological substances
CPT/HCPCS: 12001; 36415; 87389; 99282; A9270-GY

== ENCOUNTER 2019-04-15 19:32 | Emergency (ER) | payer OTHER ==
--- NOTE | 2019-04-15 20:04 | ED ---
Syncope/Near Syncope - HPI Summary HPI Summary: 43 y/o male presented to [facility] by [facility] after a near-syncopal episode occurring [employer]. Pt was doing repairs around the house when he began shaking and telling his family that his muscles were tensing up. His family helped him to the floor and during the episode he was still able to communicate by squeezing the fingers of his family members. He did not hit his head. He claims to be tired and that he is under a lot of stress, which he attributes to overwork. His BG was in the 400s in the ambulance and improved to the 200s by the time of evaluation. He stopped taking his DM medication for 6 months with blood work drawn two weeks ago from which he was supposed to have a follow-up appointment yesterday that he missed, so he did not have medication to take. He states that he occasionally gets minor headaches in the occipital region of his head. He has not had a Sz since an episode when he was 19, at which time his providers found no abnormalities in his EEG. At present, he feels no numbness or tingling in his extremities. He has FHx of CVA from his mother, CAD from his father, and diabetes from multiple family members. - History Of Current Complaint Chief Complaint: EDSyncope Time Seen by Provider: 04/15/19 19:34 Hx Obtained From: Patient, Family/Wheat Buyer Onset/Duration: Sudden Onset, Lasting Minutes Timing: Minutes Context: Witnessed Activity At Onset: Exertion Associated Head Trauma: No Alleviating Factor(s): Spontaneous Resolution Associated Signs And Symptoms: Negative - Allergies/Home Medications Allergies/Adverse Reactions: Allergies Allergy/AdvReac Type Severity Reaction Status Date / Time ceftriaxone [From Rocephin] Allergy Flushing Verified 04/15/19 19:39 sumatriptan [From Imitrex] Allergy Headache Verified 04/15/19 19:39 zolmitriptan [From Zomig] Allergy Headache Verified 04/15/19 19:39 PMH/Surg Hx/FS Hx/Imm Hx Endocrine/Hematology History: Reports: Hx Diabetes - six years ago Denies: Hx Anticoagulant Therapy, Hx Thyroid Disease Cardiovascular History: Reports: Hx Hypertension, Other Cardiovascular Problems/ Disorders - IDDM Denies: Hx Pacemaker/ICD Respiratory History: Reports: Hx Asthma Denies: Hx Chronic Obstructive Pulmonary Disease (COPD) History: Denies: Hx Dialysis, Hx Renal Disease Sensory History: Reports: Hx Contacts or Glasses Denies: Hx Deafness Opthamlomology History: Reports: Hx Contacts or Glasses Neurological History: Denies: Hx Dementia, Hx Seizures Psychiatric History: Denies: Hx Substance Abuse - Surgical History Surgical History: Yes Surgery Procedure, Year, and Place: hand surgery. gallbladder. nose repair. kidney stones - Immunization History Date of Tetanus Vaccine: unk Date of Influenza Vaccine: unk Infectious Disease History: No Infectious Disease History: Denies: Hx Clostridium Difficile, Hx Hepatitis, Hx Human Immunodeficiency Virus (HIV), Hx of Known/Suspected MRSA, Hx Shingles, Hx Tuberculosis, Hx Known/ Suspected VRE, Hx Known/Suspected VRSA, History Other Infectious Disease, Traveled Outside the [place] in Last 30 Days - Family History Known Family History: Positive: Hypertension, Diabetes - Social History Alcohol Use: None Hx Substance Use: No Substance Use Type: Reports: None Hx Tobacco Use: Yes Smoking Status (MU): Heavy Every Day Tobacco Smoker Amount Used/How Often: 1 ppd Review of Systems Positive: Fatigue Positive: Myalgia Neurological: Other - Negative: head injury Positive: Syncope - near All Other Systems Reviewed And Are Negative: Yes Physical Exam - Summary Physical Exam Summary: Constitutional: Well-developed, Well-nourished, Alert. (-) Distressed Skin: Warm, Dry HENT: Normocephalic; Atraumatic Eyes: Conjunctiva normal Neck: Musculoskeletal ROM normal neck. (-) JVD, (-) Nuchal rigidity Cardio: Rhythm regular, rate normal, Heart sounds normal; Intact distal pulses; Radial pulses are 2+ and symmetric. (-) Murmur Pulmonary/Chest wall: Effort normal. (-) Respiratory distress, (-) Wheezes, (-) Rales Abd: Soft. (-) Tenderness, (-) Distension, (-) Guarding, (-) Rebound Musculoskeletal: (-) Edema Lymph: (-) Cervical adenopathy Neuro: Alert, PERRL, Oriented x3, Strength normal, Cranial nerves II-XII are grossly intact. SILT, Strength 5/5 BUE and BLE, (-) Dysmetria, (-) Nystagmus, ambulates w steady gait. Psych: Mood and affect Normal Triage Information Reviewed: Yes Vital Signs On Initial Exam: Initial Vitals Temp Pulse Resp BP Pulse Ox 97.5 F 94 18 149/84 99 04/15/19 19:34 04/15/19 19:34 04/15/19 19:34 04/15/19 19:34 04/15/19 19:34 Vital Signs Reviewed: Yes Procedures - Sedation Patient Received Moderate/Deep Sedation with Procedure: No Diagnostics - Vital Signs Vital Signs Temp Pulse Resp BP Pulse Ox 04/15/19 19:38 90 22 149/84 99 04/15/19 19:37 93 16 98 04/15/19 19:34 97.5 F 94 18 149/84 99 - Laboratory Lab Results: Lab Results 04/15/19 Range/Units 19:38 POC Glucose (mg/dL) 289 H (70-100) mg/dL Result Diagrams: 04/15/19 20:08 04/15/19 20:08 Lab Statement: Any lab studies that have been ordered have been reviewed, and results considered in the medical decision making process. - EKG 1958 Cardiac Rate: NL - 86 bpm EKG Rhythm: Sinus Rhythm EKG Comparison: No Significant Change - No changes from 08/08/18. Summary of EKG Findings: An EKG at 1958 reveals normal sinus rhythm at 86bpm, nml axis, T-wave inversion at III. No STEMI. No changes from 08/08/18. This EKG was reviewed was reviewed and interpreted by the ED physician. Re-Evaluation - Re-Evaluation First Eval Re-Evaluation Time: 21:50 Comment: discussed results and discharge plan with patient following repeat glucose Course/Dx Course Of Treatment: 43 y/o male w hx DM, remote seizure as teenager p/w near syncopal episode. - near syncope. DDx: Seizure: no witnessed seizure activity , was conscious throughout event, no incontinence. Cardiac issue: electrical ( dysarrhythmias, brugada, WPW, long QT). Less likely given no evidence of drop attack, no palpitations, no EKG findings to predispose to arrhythmias. No CP, no STEMI on EKG; does not need full cardiac rule out with troponins and stress. Mechanical: outflow obstruction like HOCM or aortic stenosis, tamponade-less likely as no murmur, non-exertional. Vessels: PE, dissection, AAA. Clinical picture inconsistent, no abd pain, no pulsatile mass, symmetric pulses, no risk factors of PE. Volume issue: dehydration from vomiting/diarrhea/decreased PO, sepsis, GI bleed, bleeding AAA. No signs of recent illness to suggest infection , no e/o anemia by history or PE. Neuro: No HERNÁNDEZ, no personal or family h/o cerebral aneurysm, nml neuro exam, so this is unlikely ICH or sentinel bleed. Also: vasovagal, drugs/meds, autonomic insufficiency. Suspect symptoms could be 2/2 signficant stress and fatigue as patient has been working over time and reports being stressed. BG elevated to 400, hx DM, give 1 L IVF for dehydration and 8 subq insulin. Feeling better after IVF, resting. - Diagnoses Provider Diagnoses: Hyperglycemia, Near syncope, Shaking Discharge ED - Sign-Out/Discharge Documenting (check all that apply): Patient Departure - dc - Discharge Plan Condition: Stable Disposition: HOME Patient Education Materials: Near Syncope (ED) Forms: *Gen. Provider Communication Referrals: Deniz Dixon PA [Primary Care Provider] - Additional Instructions: You were seen in the emergency department for passing out. It is important to take time to rest especially when you are working long hours, as this may have contributed to this episode. Your heart tracing did not show any evidence of abnormalities. Your blood sugar was elevated, please continue taking yourr diabetic medications at home. If any studies were not completed at the time of discharge you will be called with the relevant results. Please follow up with your primary care doctor in next 2-3 days and return to emergency department for passing out, confusion, chest pains, or worsening or concerning symptoms. It was a pleasure taking care of you today. - Billing Disposition and Condition Condition: STABLE Disposition: Home - Attestation Statements Document Initiated by Cheli: Yes Documenting Scribe: Opal Gutierres Provider For Whom Cheli is Documenting (Include Credential): MD [place] Wattiberen Attestation: Opal Mcfarland scribed for Dr. Madeleine Ma MD on 04/16/19 at 1016. Scribe Documentation Reviewed: Yes Provider Attestation: The documentation as recorded by the Opal aguilar accurately reflects the service I personally performed and the decisions made by me, Dr. Madeleine Ma MD Status of [place] Document: Viewed
[2019-04-15 20:38] LABS: Albumin 4.3 g/dL (3.2-5.2); BUN/Creatinine Ratio 11.8 (8-20); Calcium 9.4 mg/dL (8.6-10.3); EGFR African American 108.3 (>60); EGFR Non-African American 89.5 (>60); Globulin 2.2 g/dL (2-4); Total Bilirubin 0.6 mg/dL (0.2-1.0); Total Protein 6.5 g/dL (6.4-8.9)
[2019-04-15 20:45] LABS: ABS Eosinophils 0.1 10^3/ul (0-0.6); ABS Lymphocytes 2.8 10^3/ul (1.0-4.8); ABS Monocytes 0.6 10^3/ul (0-0.8); ABS Neutrophils 3.9 10^3/ul (1.5-7.7); Hematocrit 49 % (42-52); Hemoglobin 17.4 g/dL (14.0-18.0); Lymphocyte % 37.6 %; Mean Corpuscular HGB Conc 36 g/dL (31-36); Mean Corpuscular Hemoglobin 31 pg (27-31); Mean Corpuscular Volume 85 fL (80-94); Mean Platelet Volume 8.2 fL (7.4-10.4); Nucleated Red Blood Cells % 0.1; Platelet Count 179 10^3/uL (150-450); Red Blood Count 5.72 10^6 /uL (4.18-5.48); Red Cell Distribution Width 13 % (10-15); White Blood Count 7.4 10^3/uL (3.5-10.8)
[2019-04-15] MEDS ORDERED: Insulin REGULAR(*) 1 UNITS UNIT SUBCUT ONE (20:46)
[2019-04-15] MEDS ORDERED: NS 0.9% 1000 ML** 1,000 ML IV ONE (20:46)
[2019-04-15 21:38] LABS: Potassium 3.8 mmol/L (3.5-5.0)
[2019-04-15 22:11] VITALS: BP 136/82
== END 2019-04-15 22:10 | disposition home or self-care (01) ==
LOC: ED 19:32
DX: R55 Syncope and collapse (principal); E11.65 Type 2 diabetes mellitus with hyperglycemia; I10 Essential (primary) hypertension; F17.210 Nicotine dependence, cigarettes, uncomplicated; R25.1 Tremor, unspecified; R53.83 Other fatigue; R94.31 Abnormal electrocardiogram [ECG] [EKG]
CPT/HCPCS: 36415; 80053; 84484; 85025; 93005; 96360; 96361; 99283